=== PATIENT | female | born 1945 | race Caucasian/White ===

== ENCOUNTER 2019-05-27 14:05 | Emergency (ER) | payer MEDICARE ==
[2019-05-27 14:53] LABS: #Basophils 0.1 thou/uL (0.0-0.2); #Eosinphils 0.1 thou/uL (0.0-0.7); #Lymphocytes 2.2 thou/uL (1.20-3.40); #Monocytes 0.6 thou/uL (0.11-0.59); #Neutrophils 7.5 thou/uL (1.40-6.50); %Basophils 0.5 % (0.0-1.0); %Eosinophils 1.1 % (0.0-10.0); %Monocytes 6.1 % (0.0-10.0); %Neutrophils 71.3 % (42.0-75.0); Hemoglobin 12.3 g/dL (12.0-16.0); Mean Corpuscular HGB CONC 31.7 g/dL (32.0-36.0); Mean Corpuscular Hemoglobin 29.2 pg (27.0-31.0); Mean Platelet Volume 5.8 fL (7.4-10.4); Platelet Count 364 thou/uL (130-400); RBC Distribution Width 14.2 % (11.5-14.5); Red Blood Cell (RBC) Count 4.22 mill/uL (4.20-5.40); White Blood Cell (WBC) Count 10.6 thou/uL (4.8-10.8)
[2019-05-27 15:10] LABS: ALT (SGPT) 25 U/L (8-55); AST (SGOT) 21 U/L (5-34); Albumin 4.1 g/dL (3.4-4.8); Alkaline Phosphatase 98 U/L (40-110); Anion Gap 18 mmol/L (10-20); BUN (Urea Nitrogen) 21 mg/dL (9.8-20.1); Bilirubin, Total 0.2 mg/dL (0.2-1.2); Calc. Creatinine Clearance 0 mL/min (70-130); Calcium 8.3 mg/dL (7.8-10.44); Carbon Dioxide 23 mmol/L (23-31); Chloride 97 mmol/L (98-107); Estimated GFR-MDRD 48; Globulin 3.2 g/dL (2.4-3.5); Glucose 105 mg/dL (83-110); Lipase 19 U/L (8-78); Potassium 4.2 mmol/L (3.5-5.1); Protein, Total 7.3 g/dL (6.0-8.3); Sodium 134 mmol/L (136-145)
== END 2019-05-27 15:30 | disposition home or self-care (01) ==
LOC: BURERS 14:05
DX: K62.5 Hemorrhage of anus and rectum (principal); I10 Essential (primary) hypertension; Z79.899 Other long term (current) drug therapy
CPT/HCPCS: 36415; 80053; 83690; 85025; 99284

== ENCOUNTER 2019-08-15 10:16 | Observation (INO) | payer MEDICARE ==
[2019-08-15 11:41] LABS: #Lymphocytes 1.5 thou/uL (1.20-3.40); #Monocytes 0.7 thou/uL (0.11-0.59); %Basophils 0.5 % (0.0-1.0); %Eosinophils 0.3 % (0.0-10.0); %Lymphocytes 14.4 % (21.0-51.0); %Monocytes 7.2 % (0.0-10.0); %Neutrophils 77.7 % (42.0-75.0); Hemoglobin 13.3 g/dL (12.0-16.0); Mean Corpuscular HGB CONC 32.6 g/dL (32.0-36.0); Mean Corpuscular Hemoglobin 29.1 pg (27.0-31.0); Mean Corpuscular Volume 89.3 fL (78.0-98.0); Mean Platelet Volume 6.9 fL (7.4-10.4); Platelet Count 354 thou/uL (130-400); RBC Distribution Width 13.3 % (11.5-14.5); Red Blood Cell (RBC) Count 4.57 mill/uL (4.20-5.40); White Blood Cell (WBC) Count 10.2 thou/uL (4.8-10.8)
[2019-08-15 11:43] LABS: Bilirubin Negative (Negative); Blood, Urine Negative (Negative); Clarity Clear (Clear); Glucose, Urine (Dipstick) Negative (Negative); Leukocyte Trace (Negative); Urobilinogen 0.2 mg/dL (Less than 2)
[2019-08-15 11:44] LABS: ALT (SGPT) 18 U/L (8-55); AST (SGOT) 14 U/L (5-34); Albumin 4.4 g/dL (3.4-4.8); Alkaline Phosphatase 90 U/L (40-110); Anion Gap 18 mmol/L (10-20); BUN (Urea Nitrogen) 16 mg/dL (9.8-20.1); Bilirubin, Total 0.5 mg/dL (0.2-1.2); Calc. Creatinine Clearance 0 mL/min (70-130); Calcium 8.7 mg/dL (7.8-10.44); Carbon Dioxide 23 mmol/L (23-31); Chloride 95 mmol/L (98-107); Estimated GFR-MDRD 51; Globulin 3.3 g/dL (2.4-3.5); Glucose 121 mg/dL (83-110); Potassium 4.1 mmol/L (3.5-5.1); Protein, Total 7.7 g/dL (6.0-8.3); Sodium 132 mmol/L (136-145)
[2019-08-15 11:53] LABS: Nitrite Unable to Interpret (Negative)
[2019-08-15 11:54] LABS: Bacteria/HPF Rare-Few HPF (None Seen); Protein, Urine (Dipstick) Unable to Interpret mg/dL (Neg-Trace); RBC/HPF 0-3 HPF (0-3); Squamous Epithelial 0-3 HPF (0-3)
[2019-08-15] MEDS ORDERED: Ondansetron PF 4 MG/2 ML Vial ONE (11:58)
--- NOTE | 2019-08-15 12:22 | RAD ---
EXAM: Single view of the chest HISTORY: Cough COMPARISON: None FINDINGS: Single view of the chest shows a normal sized cardiomediastinal silhouette. There is no michelle dence of consolidation, mass, or pleural effusion. The bones are unremarkable. IMPRESSION: No evidence of acute cardiopulmonary disease
[2019-08-15] MEDS ORDERED: cefTRIAXone\\ROCEPHIN 1 GM VIAL ONE (12:36)
[2019-08-15 15:35] VITALS: BMI 29.2
[2019-08-15] MEDS ORDERED: Ondansetron ODT 4 MG TAB SL PRN (16:52)
[2019-08-15] MEDS ORDERED: Acetaminophen 325 MG TAB PO PRN (16:52)
[2019-08-15] MEDS ORDERED: Ondansetron PF 4 MG/2 ML Vial IVP PRN (16:52)
[2019-08-15] MEDS: Dextrose 5 %-0.45 % NaCl 1,000 ML IV SCH (17:26)
[2019-08-15] MEDS ORDERED: Phenazopyridine HCl 97.5 MG TABLET PO SCH (18:00)
--- NOTE | 2019-08-15 19:44 | HP ---
CHIEF COMPLAINT: Altered mental status. HISTORY OF PRESENT ILLNESS: This 74-year-old female was brought to the [facility] Emergency Department earlier today with complaints of altered mental status; the patient was accompanied by her daughter. The patient reports to be living at home by herself and has had poor intake for the last day or 2, stating she just felt poorly. She denies having any nausea, vomiting, diarrhea, or abdominal pain. She also denies having fever, chills, or diaphoresis. Workup in the emergency department revealed largely stable labs other than the noted urinary tract infection. The patient was started on IV Rocephin and intravenous fluids and has been placed in observation status secondary to her altered state and inability to properly care for herself at home. PAST MEDICAL HISTORY: Includes hypertension; hyperlipidemia; vitamin D deficiency; and DVT/PE, status post right knee replacement. PAST SURGICAL HISTORY: Includes x4, SHELL-BSO, thyroidectomy, right total knee replacement, and left knee meniscectomy. SOCIAL HISTORY: The patient denies smoking, ETOH, or illicit drug use. She lives at home by herself. ALLERGIES: INCLUDE LISINOPRIL, AZITHROMYCIN, AND SULFA. FAMILY HISTORY: Noncontributory. CURRENT MEDICATIONS: Include calcium plus vitamin D 500 mg daily and calcitriol 0.25 mcg p.o. b.i.d. REVIEW OF SYSTEMS: GENERAL: Complains of fatigue. Denies fever. EARS, NOSE, AND THROAT: Denies sore throat, nasal drainage, or congestion. CARDIOVASCULAR: Denies chest pain or palpitations. RESPIRATORY: Denies shortness of breath or cough. GASTROINTESTINAL: Denies abdominal pain, nausea, vomiting, diarrhea, or constipation. GENITOURINARY: Denies dysuria. MUSCULOSKELETAL: Denies joint swelling. DERMATOLOGY: Denies rash. NEURO: Denies headache. LABORATORY DATA: White blood cell count 10.2, hemoglobin 13.3, hematocrit 40.8 , and platelets 254. Sodium 132, potassium 4.1, BUN 16, creatinine of 1.05, GFR is 51 , glucose is 121, lactic acid 1.4, AST 14, ALT 18. TSH normal at 1.8655. IMAGING STUDIES: On 08/15/2019, chest x-ray shows no evidence of acute cardiopulmonary disease. PHYSICAL EXAMINATION: GENERAL: She is alert and oriented to person and place, but not time. VITAL SIGNS: No current temperature, pulse is 92, respiratory rate is 18, oxygen is 97% on 2 L, and blood pressure 162/79. HEAD, EYES, EARS, NOSE, AND THROAT: Normocephalic and atraumatic. Extraocular muscles are intact bilaterally. Pupils are equal, round, and reactive to light. She is wearing glasses. She is edentulous with dry mucous membranes. NECK: Supple without lymphadenopathy. CARDIOVASCULAR: Regular rate and rhythm. Normal S1 and S2. RESPIRATORY: Clear to auscultation bilaterally without wheezes, rales, or rhonchi. ABDOMEN: Soft and nontender to palpation. No masses. EXTREMITIES: No clubbing, cyanosis, or edema. She has a peripheral IV to the right upper extremity. NEURO: Cranial nerves 2 through 12 grossly intact and nonfocal. ASSESSMENT AND PLAN: 1. Dehydration. The patient will be resumed on D5 half-normal saline at 80 mL an hour overnight. We will provide Zofran for p.r.n. nausea, and secondary to her poor intake. 2. Urinary tract infection. The patient has been started on IV Rocephin. This will be resumed and we will follow up on her urine culture. 3. Altered mental status. This appears to possibly be due to a combination of her dehydration and urinary tract infection. We will keep her on observation status overnight and reassess her mentation tomorrow along with repeat of her CBC and metabolic panel. 4. History of hypertension. The patient's blood pressure is currently elevated and we will follow this and treat as indicated. 5. History of dyslipidemia. She does not show to be on a statin at this time. 6. Prophylaxis. We will provide famotidine for gastrointestinal prophylaxis and Lovenox for deep venous thrombosis prophylaxis. DISPOSITION: We will re-evaluate the patient's mental status and labs tomorrow with possible discharge home at that time. Job ID: [id number] [facility]
[2019-08-15] MEDS ORDERED: Doxycycline 100 MG CAP PO SCH (21:00)
[2019-08-15] MEDS: Famotidine 20 MG TAB PO SCH (21:15)
[2019-08-15] MEDS: Calcitriol 0.25 MCG CAP PO SCH (21:15)
[2019-08-16 04:09] LABS: #Basophils 0.1 thou/uL (0.0-0.2); #Eosinphils 0.1 thou/uL (0.0-0.7); #Lymphocytes 1.9 thou/uL (1.20-3.40); #Monocytes 0.8 thou/uL (0.11-0.59); #Neutrophils 6.1 thou/uL (1.40-6.50); %Basophils 0.8 % (0.0-1.0); %Eosinophils 0.8 % (0.0-10.0); %Lymphocytes 21.2 % (21.0-51.0); %Neutrophils 68.2 % (42.0-75.0); Hemoglobin 11.7 g/dL (12.0-16.0); Mean Corpuscular HGB CONC 31.7 g/dL (32.0-36.0); Mean Corpuscular Hemoglobin 28.7 pg (27.0-31.0); Mean Corpuscular Volume 90.5 fL (78.0-98.0); Mean Platelet Volume 7.3 fL (7.4-10.4); Platelet Count 299 thou/uL (130-400); RBC Distribution Width 13.8 % (11.5-14.5); Red Blood Cell (RBC) Count 4.07 mill/uL (4.20-5.40)
[2019-08-16 04:18] LABS: ALT (SGPT) 14 U/L (8-55); AST (SGOT) 14 U/L (5-34); Albumin 3.6 g/dL (3.4-4.8); Alkaline Phosphatase 71 U/L (40-110); Anion Gap 16 mmol/L (10-20); BUN (Urea Nitrogen) 12 mg/dL (9.8-20.1); Bilirubin, Total 0.3 mg/dL (0.2-1.2); Calc. Creatinine Clearance 78 mL/min (70-130); Calcium 7.5 mg/dL (7.8-10.44); Carbon Dioxide 24 mmol/L (23-31); Chloride 103 mmol/L (98-107); Estimated GFR-MDRD 61; Globulin 2.6 g/dL (2.4-3.5); Glucose 115 mg/dL (83-110); Potassium 3.7 mmol/L (3.5-5.1); Protein, Total 6.2 g/dL (6.0-8.3); Sodium 139 mmol/L (136-145)
[2019-08-16] MEDS ORDERED: Enoxaparin Sodium 40 MG/0.4 ML SYRINGE SC SCH (09:00)
[2019-08-16] MEDS ORDERED: Calcium Carbonate + Vit D 500 MG TAB PO SCH (09:00)
[2019-08-16] MEDS: Calcitriol 0.25 MCG CAP PO SCH (09:31)
[2019-08-16] MEDS: Famotidine 20 MG TAB PO SCH (09:32)
[2019-08-16] MEDS: Dextrose 5 %-0.45 % NaCl 1,000 ML IV SCH (09:33)
[2019-08-16] MEDS ORDERED: cefTRIAXone\\ROCEPHIN 1 GM in Sodium Chloride 0.9% 100 ML IVPB SCH (12:00)
[2019-08-16 12:11] VITALS: BP 124/65; TEMP 98.1
--- NOTE | 2019-08-16 12:34 | DIS ---
DATE OF ADMISSION: 08/15/2019 DATE OF DISCHARGE: 08/16/2019 ADMISSION DIAGNOSES: Dehydration, hyponatremia, urinary tract infection, and altered mental status. SECONDARY DIAGNOSES: Hypertension, hypothyroidism, history of dyslipidemia, and vitamin D deficiency. PROCEDURES: On 08/15/2019, chest x-ray showed no evidence of acute cardiopulmonary disease. HOSPITAL COURSE: A 74-year-old female who was brought into the [facility] Emergency Department by her sister in law secondary to concerns for the patient having an altered mental status. The patient is followed by Dr. Mao and had apparently been recently started on doxycycline for presumed urinary tract infection. Workup in the emergency department revealed the patient to be dehydrated with hyponatremia and a urinary tract infection. She was started on D5 half- normal saline and IV Rocephin and admitted for observation status overnight. Upon re-evaluation of the patient this morning, her electrolytes have corrected with her sodium level increasing from an initial 132 to a present 139. Her mental status has reverted back to her baseline. She has remained afebrile with normal vital signs. She reports her intake and output to be at baseline. She is amenable to discharge back to her home setting with further p.o. antibiotics to complete treatment for her urinary tract infection. She will need followup of her urine culture. Thus far, her blood cultures have shown no growth to date. DISPOSITION: The patient will discharge home at this time and may follow up with her primary care provider, Dr. Mao in approximately 1 week. MEDICATIONS: One new medication will be Ceftin 500 mg p.o. b.i.d. x5 days. She will resume her usual home medications including; 1. Metoprolol 25 mg b.i.d. 2. Amlodipine 5 mg daily. 3. Levothyroxine 100 mcg daily. 4. Calcitriol 0.25 mcg b.i.d. 5. Calcium carbonate plus vitamin D 500 mg p.o. daily. Job ID: [id number] [facility]
== END 2019-08-16 12:05 | disposition home or self-care (01) ==
LOC: BURERS 10:16 → BURMED 12:27
PROVIDERS: ADMIT Family Medicine; ATTEND Family Medicine
DX: E86.0 Dehydration (principal); E87.1 Hypo-osmolality and hyponatremia; N39.0 Urinary tract infection, site not specified; R41.82 Altered mental status, unspecified; I10 Essential (primary) hypertension; E89.0 Postprocedural hypothyroidism; E78.5 Hyperlipidemia, unspecified; E55.9 Vitamin D deficiency, unspecified; Z79.899 Other long term (current) drug therapy; Z88.2 Allergy status to sulfonamides; Z88.1 Allergy status to other antibiotic agents; Z88.8 Allergy status to other drugs, medicaments and biological substances
CPT/HCPCS: 36415; 71045; 80053; 81003; 81015; 83605; 84443; 85025; 87040; 87086; 96361; 96365; 96375; G0378; J0696; J2405

== ENCOUNTER 2019-12-14 15:40 | Outpatient (CLI) | payer MEDICARE ==
--- NOTE | 2019-12-14 17:52 | RAD ---
CHEST TWO VIEWS: 12/14/19 PA and lateral views are compared with a 08/15/19 study. There is some minimal linear streaking over each diaphragm that may be atelectasis or scarring. No m ajor acute infiltrate was seen. There are no effusions. The heart is normal in size. There is no vasc ular congestion or edema. IMPRESSION: No definite acute finding. POS: HOME
== END 2019-12-14 15:41 | disposition home or self-care (01) ==
LOC: BURRAD 15:40
PROVIDERS: ATTEND Nurse Practitioner Family
DX: R05 Cough (principal)
CPT/HCPCS: 71046